=== PATIENT | male | born 1945 | race Caucasian/White ===

== ENCOUNTER → 2017-05-27 | Outpatient (CLI) | payer BC ==
[~2017-05-27] MED LIST: 'TENORMIN50 MG PO; LANOXIN250 MCG PO; LISINOPRIL5 MG PO; TOPROL XL50 M1 PO; VICODIN 500 MG-1 TAB PO; XARE20MG PO
== END | disposition home or self-care (01) ==
LOC: CARD 01:57
DX: I08.3 Combined rheumatic disorders of mitral, aortic and tricuspid valves (principal)

== ENCOUNTER → 2018-08-18 | Outpatient (CLI) | payer BC ==
--- NOTE | ~2018-08-18 | ST ---
[place], [place] EXERCISE STRESS TEST REPORT NAME: GRISELDA TONG UNIT #: [id number] ROOM: DOCTOR: NARESH RIVERA MD BIRTHDATE: [birth year] DOS: 08/18/2018 PHARMACOLOGIC MYOCARDIAL STRESS TEST INDICATIONS: Dyspnea, history of atrial fibrillation, left shoulder pain. PROCEDURE: The patient was given a rapid infusion of regadenoson 0.4 mg intravenously over 10 seconds followed by a saline flush. He had no symptoms. The resting EKG showed frequent PACs. With the infusion, his heart rate did increase slightly from a resting rate of 97 to a peak rate of 106. He had frequent PACs with the infusion. No other symptoms were noted. Forty seconds after the infusion was given radionuclide intravenously. IMPRESSION: 1. Well tolerated infusion of regadenoson. 2. Radionuclide administered. Please see the separate imaging report for further details of the patient's stress test results. NARESH RIVERA MD CM:STRESS:EXERCISE STRESS TEST REPORT [id number] NARESH RIVERA MD
--- NOTE | 2018-08-18 07:40 | NUR ---
INFORMED CONSENT OBTAINED FOR A LEXISCAN STRESS TEST WITH DR. RIVERA. RESTING EKG AFIB, WITH A RESTING HT RT OF 97 AND BP OF 120/78. POX 94% VIA RA WITH CLEAR BREATH SOUNDS ROLANDO. COMPLETED ONE MINUTE OF A LEXISCAN PROTOCOL RECEIVING LEXISCAN 0.4 MG OVER 10 SECONDS. NO SYMPTOMS REPORTED. HAD A PEAK HT RT OF 105 WITH A BP OF 132/86. LAST RECOVERY HT RT OF 104, WITH A BP OF 130/84. AWAITING NUCLEAR IMAGING IN STABLE CONDITION.
[2018-08-18 08:37] LABS: BASO # 0.1 10*3/uL (0.0-0.1); BASO % 0.8 % (0.0-1.0); EOS # 0.3 10*3/uL (0.0-0.4); EOS % 3.9 % (1.0-4.0); HEMATOCRIT 42.2 % (42.0-52.0); HEMOGLOBIN 13.1 g/dl (14.0-18.0); LYMPH # 1.5 10*3/uL (1.3-4.4); LYMPH % 20.6 % (27.0-41.0); MEAN CELL VOLUME 83.4 fl (80.0-94.0); MEAN CORPUSCULAR HGB 25.9 pg (27.0-31.0); MEAN PLATELET VOLUME 10.3 fl (9.6-12.3); MONO # 0.7 10*3/uL (0.1-1.0); MONO % 9.2 % (3.0-9.0); NEUT # 4.9 10*3/uL (2.3-7.9); NEUT % 65.1 % (47.0-73.0); PLATELET COUNT AUTOMATED 264 10*3/uL (130-400); RED BLOOD COUNT 5.06 10*6/uL (4.50-5.90); RED CELL DISTRI WIDTH 14.5 % (0-14.5); WHITE BLOOD COUNT 7.5 10*3/uL (4.8-10.8)
[2018-08-18 09:14] LABS: ALBUMIN 3.3 gm/dl (3.1-4.5); ALKALINE PHOSPHATASE 46 U/L (45-117); BUN 25 mg/dl (7-24); CHLORIDE 108 mmol/L (98-107); CHOLESTEROL 150 mg/dL (<200); CREATININE 1.09 mg/dL (0.70-1.30); HDL CHOLESTEROL 42 mg/dl (40-60); LDL CHOLESTEROL 96 mg/dL (9-159); POTASSIUM 4.5 mmol/L (3.5-5.1); SGOT/AST 17 IU/L (3-35); SGPT/ALT 37 U/L (12-78); SODIUM 141 mmol/L (136-145); TOTAL PROTEIN 6.5 gm/dL (6.4-8.2); TRIGLYCERIDES 62 mg/dl (<150); VLDL CHOLESTEROL 12 mg/dL (6-40)
== END | disposition home or self-care (01) ==
LOC: LAB 03:09 → CARD 03:09
PROVIDERS: Internal Medicine Cardiovascular Disease
DX: I48.1 Persistent atrial fibrillation (principal); R53.83 Other fatigue; R06.02 Shortness of breath; R07.2 Precordial pain; M25.512 Pain in left shoulder

== ENCOUNTER 2020-04-03 11:34 | Emergency (ER) | payer MEDICARE ==
[~2020-04-03] VITALS: Ht 185.4 cm; Wt 106.6 kg
[2020-04-03 11:41] VITALS: BP 106/98
[2020-04-03 12:25] LABS: BASO % 0.6 % (0.0-1.0); EOS # 0.2 10*3/uL (0.0-0.4); EOS % 2.3 % (1.0-4.0); HEMATOCRIT 34.3 % (42.0-52.0); LYMPH # 1.1 10*3/uL (1.3-4.4); LYMPH % 15.9 % (27.0-41.0); MEAN CELL VOLUME 76.1 fl (80.0-94.0); MEAN CORPUSCULAR HGB 22.4 pg (27.0-31.0); MEAN CORPUSCULAR HGB CONC 29.4 g/dl (33.0-37.0); MEAN PLATELET VOLUME 9.2 fl (9.6-12.3); MONO # 0.7 10*3/uL (0.1-1.0); MONO % 9.8 % (3.0-9.0); NEUT # 4.7 10*3/uL (2.3-7.9); NEUT % 71.2 % (47.0-73.0); PLATELET COUNT AUTOMATED 232 10*3/uL (130-400); RED BLOOD COUNT 4.51 10*6/uL (4.50-5.90); WHITE BLOOD COUNT 6.6 10*3/uL (4.8-10.8)
[2020-04-03 12:37] LABS: BILIRUBIN NEGATIVE; BLOOD 3+ (NEGATIVE); CLARITY TURBID (CLEAR); COLOR RED (YELLOW); GLUCOSE NEGATIVE; KETONE NEGATIVE; PH 6.5 (4.5-8.0); SPECIFIC GRAVITY 1.025 (1.001-1.030)
[2020-04-03 12:38] LABS: ACT PARTIAL THROMBO TIME 34.2 SECONDS (20.0-32.1); INTERNATIONAL NORM RATIO 1.4 (2.0-3.5)
[2020-04-03 12:38] LABS: LEUKO ESTERASE TRACE (NEGATIVE); NITRITE NEGATIVE (NEGATIVE)
[2020-04-03 12:41] LABS: RBC TNTC rbc/hpf (0-2)
[2020-04-03 12:49] LABS: ALBUMIN 3.3 gm/dl (3.1-4.5); ALKALINE PHOSPHATASE 69 U/L (45-117); BUN 25 mg/dl (7-24); CHLORIDE 111 mmol/L (98-107); POTASSIUM 3.8 mmol/L (3.5-5.1); SGOT/AST 15 IU/L (3-35); SGPT/ALT 26 U/L (12-78); SODIUM 141 mmol/L (136-145); TOTAL PROTEIN 6.6 gm/dL (6.4-8.2)
== END 2020-04-03 18:15 | disposition home or self-care (01) ==
LOC: ED 11:34
PROVIDERS: Emergency Medicine
DX: R31.9 Hematuria, unspecified (principal); Z79.899 Other long term (current) drug therapy

== ENCOUNTER → 2021-12-29 | Day surgery (SDC) | payer MEDICARE ==
[~2021-12-29] VITALS: Ht 185.4 cm; Wt 111.1 kg
[2021-12-29 10:30] VITALS: BP 176/112
[2021-12-29 12:15] VITALS: BP 89/59
[2021-12-29 12:30] VITALS: BP 101/74
[2021-12-29 12:45] VITALS: BP 136/84
[2021-12-29 14:09] VITALS: BP 136/64
== END | disposition home or self-care (01) ==
LOC: SDC 12-25 13:15
PROVIDERS: ATTEND Surgery
DX: Z12.11 Encounter for screening for malignant neoplasm of colon (principal); K57.30 Diverticulosis of large intestine without perforation or abscess without bleeding; D12.0 Benign neoplasm of cecum; D12.2 Benign neoplasm of ascending colon; D12.5 Benign neoplasm of sigmoid colon; I10 Essential (primary) hypertension; I48.91 Unspecified atrial fibrillation; Z85.828 Personal history of other malignant neoplasm of skin; Z79.899 Other long term (current) drug therapy